=== PATIENT | female | born 1965 | race Caucasian/White ===

== ENCOUNTER → 2016-04-21 | Outpatient (CLI) | payer MEDICARE, BC ==
[~2016-04-21] MED LIST: AMBIEN10 MG PO; DEPAKOTE 125MG125 M1 PO; ENJUVIA1.25 MG PO; IMITREX100 MG PO; LEXAPRO20 MG PO; PERCOCET 325 MG1 TAB PO; SYNTHROID0.125 MG PO; WELLBUTRIN100 MG PO
== END ==
LOC: LAB 17:42
DX: N30.01 Acute cystitis with hematuria (principal)

== ENCOUNTER → 2016-05-14 | Outpatient (CLI) | payer MEDICARE, BC | LOC: LAB 14:59 | DX: E55.9 Vitamin D deficiency, unspecified (principal); R79.89 Other specified abnormal findings of blood chemistry ==

== ENCOUNTER → 2016-09-21 | Outpatient (CLI) | payer MEDICARE, BC ==
[2014-07-11 23:36] VITALS: BP 116/58
== END ==
LOC: LAB 14:43
DX: E55.9 Vitamin D deficiency, unspecified (principal)

== ENCOUNTER → 2016-12-24 | Outpatient (CLI) | payer MEDICARE, BC ==
[2014-07-11 23:36] VITALS: BP 116/58
== END ==
LOC: LAB 16:15
PROVIDERS: Family Medicine
DX: E03.9 Hypothyroidism, unspecified (principal)

== ENCOUNTER → 2017-04-13 | Outpatient (CLI) | payer MEDICARE, BC ==
[~2017-04-13] VITALS: Ht 160 cm; Wt 55.0 kg
[~2017-04-13] MED LIST changes: +AMBIEN5 M1 PO; +CLARINEX2.5 MG/5 M PO; +DEXEDRINE SPANS15 M1 PO; +DEXILANT60 MG PO; +DURAGESIC1 EACH TD; +ESCITALOPRAM20 MG PO; +HYDROCODONE BIT1 T43 PO; +IMITREX100 M1 PO; +MELATONIN3 MG PO; +PROAIR HFA0.09 MG/AC IH; +SYNTHROID112 MCG PO; +VITAMIN D 1001000 IU PO; +VITAMIN D22000 IU PO
[2017-04-13 14:39] VITALS: BP 104/59
== END ==
LOC: LAB 10:53 → AMSURD 10:53
PROVIDERS: Family Medicine
DX: E03.9 Hypothyroidism, unspecified (principal)

== ENCOUNTER → 2017-04-13 | Outpatient (CLI) | payer MEDICARE, BC ==
[2014-07-11 23:36] VITALS: BP 116/58
== END ==
LOC: MAMMO 03-23 13:00 → RAD 03-23 13:00 → MAMMO 10:52
DX: Z12.31 Encounter for screening mammogram for malignant neoplasm of breast (principal); R92.0 Mammographic microcalcification found on diagnostic imaging of breast

== ENCOUNTER → 2017-05-05 | Outpatient (CLI) | payer MEDICARE, BC ==
[2017-04-13 14:39] VITALS: BP 104/59
== END ==
LOC: MAMMO 09:28
DX: R92.0 Mammographic microcalcification found on diagnostic imaging of breast (principal)

== ENCOUNTER → 2018-05-16 | Outpatient (CLI) | payer MEDICARE, BC ==
[2017-04-13 14:39] VITALS: BP 104/59
== END ==
LOC: MAMMO 12:48
DX: Z12.31 Encounter for screening mammogram for malignant neoplasm of breast (principal); R92.0 Mammographic microcalcification found on diagnostic imaging of breast